=== PATIENT | male | born 1980 ===

== ENCOUNTER 2016-12-24 18:29 | Emergency (ER) | payer OTHER | END 2016-12-24 21:14 | disposition T | LOC: EDMED 18:29 | DX: S46.811A Strain of other muscles, fascia and tendons at shoulder and upper arm level, right arm, initial encounter (principal); Z88.0 Allergy status to penicillin; Z98.890 Other specified postprocedural states; F17.210 Nicotine dependence, cigarettes, uncomplicated; W01.198A Fall on same level from slipping, tripping and stumbling with subsequent striking against other object, initial encounter; Y92.019 Unspecified place in single-family (private) house as the place of occurrence of the external cause ==